=== PATIENT | female | born 1975 | race Caucasian/White ===

== ENCOUNTER → 2017-06-25 | Day surgery (SDC) | payer MEDICAID ==
[~2017-06-25] VITALS: Ht 157.5 cm; Wt 88.5 kg
[2017-06-25 08:07] VITALS: BP 146/89
[2017-06-25 08:25] VITALS: BP 146/89
[2017-06-25 08:26] VITALS: BP 146/89
[2017-06-25 08:35] VITALS: BP 145/90
--- NOTE | 2017-06-25 08:37 | Procedure Note ---
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 Cervical radiculopathy symptoms. Cervical postlaminectomy syndrome. Post-procedure diagnosis: Same. Indications for procedure: Very pleasant 41-year-old white female the comes our procedure clinic today for a second cervical epidural steroid injection. Patient has cervical neck pain as well as LEFT shoulder and arm radicular symptoms. She responded very well to her first cervical epidural steroid injection. Procedure detail: Procedure:Cervical epidural steroid injection Informed consent was obtained and the risks and benefits of the procedure were explained to the patient. The patient was taken to the procedure room and noninvasive monitors placed, including noninvasive blood pressure cuff and pulse oximeter. The neck was prepped using Betadine as a cleansing solution. The C6-C7 interspace was palpated. The skin and subcutaneous tissues were anesthetized using lidocaine 1.5% and a 25-gauge needle. After this an 18-gauge Touhy epidural needle was placed into the C6-C7 interspace and advanced using loss of resistance to air until the epidural space was encountered. After confirmation of needle placement in the epidural space using fluoroscopy, a solution containing lidocaine 1.5%, 4 mL and Depo-Medrol 80 mg was incrementally injected into the cervical epidural space.~ The patient tolerated the procedure well with no complications. The patient was observed in the Pain Clinic and then discharged home neurologically intact. Plan and disposition: Patient was reevaluated 10 minutes post procedure. She doing very well. She will return to see us in the pain clinic for further evaluation. at [id number]
== END ==
LOC: PM 07:51
PROC: 3E0R3BZ Introduction of Anesthetic Agent into Spinal Canal, Percutaneous Approach (ICD-10-PCS; principal; 2017-06-25)
PROC: 3E0R33Z Introduction of Anti-inflammatory into Spinal Canal, Percutaneous Approach (ICD-10-PCS; 2017-06-25)
DX: M50.10 Cervical disc disorder with radiculopathy, unspecified cervical region (principal); M96.1 Postlaminectomy syndrome, not elsewhere classified

== ENCOUNTER → 2017-07-27 | Outpatient (CLI) | payer MEDICAID ==
[~2017-07-27] MED LIST: DULOXETINE 30MG30 MG PO; ESTRADIOL0.5 MG PO; FLEXERIL10 MG PO; GABAPENTIN300 MG PO; MEDROXYPROGEST2.5 MG PO; NAPROXEN DELAY500 MG PO
--- NOTE | 2017-07-27 09:34 | RADIOLOGY REPORT PS360 ---
MRI-C-SPINE W/O, MRI-3D RENDERING/MYELOGRAM HISTORY: Neck pain, left shoulder and left arm pain, headache, previous surgery. NECK PAIN ORDERING PHYSICIAN: Qasim Figueroa MD PATIENT AGE: 41 years COMPARISON: 07/03/2016 TECHNIQUE: Standard multiplanar multiecho sequences are performed without contrast. 3-D MIP and myelographic images are also rendered and reviewed FINDINGS: There is normal alignment. The craniocervical junction has an unremarkable appearance. There is straightening of the cervical lordosis nonspecific. Spinal cord itself has an unremarkable appearance. C2-C3, C3-C4, C4-C5 have an unremarkable appearance. C5-C6: Mild concentric bulging disc at C5-C6 with minimal disc desiccation without impingement. C6-C7: Status post anterior cervical disc fusion with artifact from the screws and anterior bone plate. No evidence of residual or recurrent disc herniation. No impingement upon the cord or foraminal narrowing. No evidence of paravertebral abscess. C7-T1: Unremarkable. IMPRESSION: Status post anterior cervical disc fusion at C6-C7. No evidence of residual recurrent disc herniation. No disc herniation or canal stenosis or significant degenerative change. Straightening of cervical lordosis nonspecific but may be seen with positioning or muscle spasm.
== END ==
LOC: RAD 07:54
DX: M54.2 Cervicalgia (principal)